=== PATIENT | male | born 1960 | race Two or more races ===

== ENCOUNTER 2019-05-19 17:51 | Inpatient (IN) | payer MEDICAID ==
[~2019-05-19] VITALS: Ht 167.6 cm; Wt 67.4 kg
[2019-05-19] MEDS ORDERED: METF-960 PO (18:01)
[2019-05-19] MEDS ORDERED: SPIR25 PO (18:01)
[2019-05-19] MEDS ORDERED: FURO40I IM (18:01)
[2019-05-19] MEDS ORDERED: FURO40TA5 PO (18:07)
[2019-05-19 19:13] LABS: BASOPHILS % (AUTO) 0.6 % (0.0-2.0); EOSINOPHILS % (AUTO) 4.9 % (1.0-6.0); HEMATOCRIT 38.1 % (41-53); HEMOGLOBIN 12.7 g/dL (13.5-17.5); LYMPHOCYTES % (AUTO) 11.9 % (22.0-44.0); MEAN CORPUSCULAR HEMOGLOBIN 33.4 pg (26.0-34.0); MEAN CORPUSCULAR HGB CONC 33.2 G/dL (31.0-37.0); MEAN CORPUSCULAR VOLUME 101 fL (80-100); MONOCYTES % (AUTO) 11.1 % (2.0-9.0); NEUTROPHILS # (AUTO) 6.3 K/uL (1.8-7.7); NEUTROPHILS % (AUTO) 71.5 % (40.0-70.0); PLATELET COUNT (AUTO) 285 K/uL (150-450); RED BLOOD CELL COUNT(AUTO) 3.79 MIL/uL (4.50-5.90)
[2019-05-19 19:25] LABS: INR 1.1 (0.9-1.1); PROTHROMBIN TIME 11.2 SEC (9.4-11.6)
[2019-05-19 19:26] LABS: CALCIUM, TOTAL 8.6 mg/dL (8.8-10.5); CREATININE 2.63 mg/dL (0.60-1.30); POTASSIUM 5.5 mmol/L (3.5-5.1)
[2019-05-19] MEDS ORDERED: ONDANSETRON HCL 4 MG/2 ML VIAL IM ONE (19:30)
[2019-05-19] MEDS ORDERED: MORPHINE SULFATE 4 MG/ML SYRINGE IM ONE (19:30)
[2019-05-19 19:33] LABS: ALBUMIN 2.1 g/dL (3.4-5.0); BILIRUBIN,TOTAL 0.3 mg/dL (0.1-1.0); TOTAL PROTEIN, SERUM 6.5 g/dL (6.4-8.2)
[2019-05-19] MEDS ORDERED: MORPHINE SULFATE 2 MG/ML SYRINGE IVP ONE (20:00)
[2019-05-19] MEDS ORDERED: ONDANSETRON HCL 4 MG/2 ML VIAL IVP ONE (20:00)
[2019-05-19] MEDS ORDERED: SODIUM POLYSTYRENE SULFONATE 15 GM/60 ML SUSPENSION BOTTLE PO ONE (22:00)
[2019-05-19 22:35] LABS: APPEARANCE,URINE CLEAR (CLEAR); GLUCOSE, URINE (UA) NEGATIVE (NEGATIVE); KETONES,URINE TRACE mg/dL (NEGATIVE); LEUKOCYTE ESTERASE ,URINE NEGATIVE (NEGATIVE); NITRATE,URINE NEGATIVE (NEGATIVE); OCCULT BLOOD,URINE NEGATIVE (NEGATIVE); PROTEIN,URINE NEGATIVE (NEGATIVE)
[2019-05-19 22:36] LABS: BILIRUBIN,URINE PRELIM. POSITIVE (NEGATIVE)
[2019-05-19] MEDS ORDERED: 0.9% SODIUM CHLORIDE 10 ML SYRINGE IVP PRN (22:45)
[2019-05-19] MEDS ORDERED: ACETAMINOPHEN 325 MG TABLET PO PRN (22:45)
[2019-05-19] MEDS ORDERED: ONDANSETRON HCL 4 MG/2 ML VIAL IVP PRN (22:45)
[2019-05-19 22:47] LABS: AMPHET/METH SCREEN,URINE NEGATIVE (NEGATIVE); BARBITURATE SCREEN, URINE NEGATIVE (NEGATIVE); BENZODIAZEPINES SCREEN,URINE NEGATIVE (NEGATIVE); CANNABINOID SCREEN,URINE NEGATIVE (NEGATIVE); COCAINE SCREEN,URINE NEGATIVE (NEGATIVE); METHADONE SCREEN, URINE NEGATIVE (NEGATIVE); OPIATE SCREEN,URINE POSITIVE (NEGATIVE); PHENCYCLIDINE SCREEN,URINE NEGATIVE (NEGATIVE)
[2019-05-19 22:49] LABS: BACTERIA,URINE Rare /HPF (None Seen); RBC,URINE 0-2 /HPF (0-2); WBC,URINE 0-2 /HPF (0-5)
[2019-05-19 22:50] LABS: SQUAMOUS EPITHELIAL CELL,UR Few /LPF (None Seen)
[2019-05-20] VITALS (8 sets, daily range): BP systolic 92–125; BP diastolic 57–73
[2019-05-20] MEDS ORDERED: PNEUMOCOCCAL VACCINE POLYVALENT 0.5 ML VIAL [PPSV23] IM ONE (03:00)
[2019-05-20 05:10] LABS: EOSINOPHILS % (AUTO) 7.8 % (1.0-6.0); HEMATOCRIT 36.3 % (41-53); HEMOGLOBIN 12.2 g/dL (13.5-17.5); LYMPHOCYTES # (AUTO) 0.8 K/uL (1.0-4.8); LYMPHOCYTES % (AUTO) 11.3 % (22.0-44.0); MEAN CORPUSCULAR HEMOGLOBIN 33.4 pg (26.0-34.0); MEAN CORPUSCULAR HGB CONC 33.7 G/dL (31.0-37.0); MEAN CORPUSCULAR VOLUME 99 fL (80-100); MONOCYTES # (AUTO) 0.8 K/uL (0.1-1.0); NEUTROPHILS # (AUTO) 5.1 K/uL (1.8-7.7); NEUTROPHILS % (AUTO) 68.9 % (40.0-70.0); PLATELET COUNT (AUTO) 269 K/uL (150-450); RED BLOOD CELL COUNT(AUTO) 3.66 MIL/uL (4.50-5.90); RED CELL DISTRIBUTION WIDTH 14.1 % (11.5-14.5)
[2019-05-20 05:27] LABS: AMMONIA 23 umol/L (11-32); TROPONIN I < 0.02 ng/mL (0.00-0.05)
[2019-05-20 05:30] LABS: BILIRUBIN,TOTAL 0.2 mg/dL (0.1-1.0); CALCIUM, TOTAL 8.4 mg/dL (8.8-10.5); CREATININE 2.62 mg/dL (0.60-1.30); POTASSIUM 5.6 mmol/L (3.5-5.1); TOTAL PROTEIN, SERUM 5.7 g/dL (6.4-8.2)
[2019-05-20] MEDS ORDERED: MORPHINE SULFATE 2 MG/ML SYRINGE IVP PRN (06:45)
[2019-05-20] MEDS ORDERED: BISACODYL 10 MG RECTAL RECTAL SUPPOSITORY PR PRN (06:45)
[2019-05-20] MEDS ORDERED: ONDANSETRON HCL 4 MG/2 ML VIAL IVP PRN (06:45)
[2019-05-20] MEDS ORDERED: SODIUM CHLORIDE 0.9% 500 ML IV ONE (06:45)
[2019-05-20] MEDS ORDERED: ACETAMINOPHEN 325 MG TABLET PO PRN (06:45)
[2019-05-20] MEDS ORDERED: HYDROCODONE/ACETAMINOPHEN 5-325 MG TABLET PO PRN (06:45)
[2019-05-20] MEDS ORDERED: ZOLPIDEM TARTRATE 5 MG TABLET PO PRN (06:45)
[2019-05-20] MEDS ORDERED: MAGNESIUM HYDROXIDE SUSPENSION 30 ML UDCUP PO PRN (06:45)
[2019-05-20] MEDS ORDERED: SODIUM POLYSTYRENE SULFONATE 15 GM/60 ML SUSPENSION BOTTLE PO ONE (06:45)
[2019-05-20] MEDS: DOCUSATE SODIUM 100 MG CAPSULE PO SCH ×2 (07:43→20:00)
[2019-05-20] MEDS: PANTOPRAZOLE SODIUM 40 MG DR TABLET PO SCH (08:05)
[2019-05-20] MEDS ORDERED: LISI-662 PO (08:14)
[2019-05-20] MEDS ORDERED: ASPI-728 PO (08:14)
[2019-05-20] MEDS: HEPARIN SODIUM,PORCINE 5,000 UNITS/ML VIAL SQ SCH ×3 (08:17→23:11)
[2019-05-20 10:07] LABS: GLUCOMETER DEV NAME(LOC) 5N.2; GLUCOSE,POINT OF CARE 89 MG/DL (70-110)
[2019-05-20 10:07] LABS: GLUCOMETER DEV NAME(LOC) 5N.2; GLUCOSE,POINT OF CARE 82 MG/DL (70-110)
[2019-05-20 17:14] LABS: GLUCOMETER DEV NAME(LOC) 5N.1; GLUCOSE,POINT OF CARE 142 MG/DL (70-110)
[2019-05-20 17:14] LABS: GLUCOMETER DEV NAME(LOC) 5N.1; GLUCOSE,POINT OF CARE 148 MG/DL (70-110)
[2019-05-20] MEDS: ALBUMIN HUMAN 25%-25GM/100ML 100 ML IV SCH ×2 (18:08→23:09)
[2019-05-21] MEDS: ALBUMIN HUMAN 25%-25GM/100ML 100 ML IV SCH ×2 (05:02→12:30)
[2019-05-21 05:06] VITALS: BP 113/61
[2019-05-21 07:38] VITALS: BP 120/65
[2019-05-21] MEDS: PANTOPRAZOLE SODIUM 40 MG DR TABLET PO SCH (08:03)
[2019-05-21] MEDS: DOCUSATE SODIUM 100 MG CAPSULE PO SCH ×2 (08:03→21:00)
[2019-05-21] MEDS: HEPARIN SODIUM,PORCINE 5,000 UNITS/ML VIAL SQ SCH ×3 (08:03→23:26)
[2019-05-21 08:05] LABS: CREATININE 1.75 mg/dL (0.60-1.30); MAGNESIUM 2.1 mg/dL (1.80-2.40); PHOSPHORUS 3.4 mg/dL (2.5-4.9); POTASSIUM 4.3 mmol/L (3.5-5.1)
[2019-05-21 08:27] LABS: APPEARANCE,URINE CLEAR (CLEAR); BILIRUBIN,URINE NEGATIVE (NEGATIVE); GLUCOSE, URINE (UA) NEGATIVE (NEGATIVE); KETONES,URINE NEGATIVE (NEGATIVE); LEUKOCYTE ESTERASE ,URINE NEGATIVE (NEGATIVE); NITRATE,URINE NEGATIVE (NEGATIVE); OCCULT BLOOD,URINE NEGATIVE (NEGATIVE); PROTEIN,URINE NEGATIVE (NEGATIVE); UROBILINOGEN,URINE 0.2 mg/dL (<=1.0)
[2019-05-21 08:29] LABS: CREATININE,URINE RANDOM 111.7 mg/dL (30.0-125.0); SODIUM,URINE RANDOM 45 mmol/l (20-110); UREA NITROGEN,URINE RANDOM 759 mg/dL (350-1000)
[2019-05-21 08:30] LABS: BACTERIA,URINE None Seen /HPF (None Seen); RBC,URINE None Seen /HPF (0-2); WBC,URINE None Seen /HPF (0-5)
[2019-05-21 11:08] VITALS: BP 130/73
[2019-05-21] MEDS ORDERED: SODIUM CHLORIDE 0.9% 250 ML IV ONE (12:24)
[2019-05-21 15:09] VITALS: BP 98/58
[2019-05-21 19:32] VITALS: BP 104/54
[2019-05-22 00:17] VITALS: BP 97/53
[2019-05-22 04:40] VITALS: BP 98/54
[2019-05-22 05:51] LABS: CREATININE 1.53 mg/dL (0.60-1.30); MAGNESIUM 2.2 mg/dL (1.80-2.40); PHOSPHORUS 2.8 mg/dL (2.5-4.9); POTASSIUM 4.1 mmol/L (3.5-5.1)
[2019-05-22 07:07] VITALS: BP 91/49
[2019-05-22 07:16] VITALS: BP 105/58
[2019-05-22] MEDS: HEPARIN SODIUM,PORCINE 5,000 UNITS/ML VIAL SQ SCH (08:58)
[2019-05-22] MEDS: DOCUSATE SODIUM 100 MG CAPSULE PO SCH (08:59)
[2019-05-22] MEDS: PANTOPRAZOLE SODIUM 40 MG DR TABLET PO SCH (08:59)
[2019-05-22] MEDS ORDERED: MULTIVITAMINS WITH MINERALS, THERAPEUTIC TABLET PO SCH (09:00)
[2019-05-22 10:55] VITALS: BP 128/71
== END 2019-05-22 14:10 | disposition home or self-care (01) ==
LOC: EMS 17:58 → 5N 05-20 02:22
PROVIDERS: ADMIT Internal Medicine; ATTEND Internal Medicine
PROC: 0W9G3ZZ Drainage of Peritoneal Cavity, Percutaneous Approach (ICD-10-PCS; principal; 2019-05-20)
DX: K74.60 Unspecified cirrhosis of liver (principal); E43 Unspecified severe protein-calorie malnutrition; N17.9 Acute kidney failure, unspecified; R18.8 Other ascites; E11.22 Type 2 diabetes mellitus with diabetic chronic kidney disease; E87.5 Hyperkalemia; I13.0 Hypertensive heart and chronic kidney disease with heart failure and stage 1 through stage 4 chronic kidney disease, or unspecified chronic kidney disease; I50.9 Heart failure, unspecified; D63.8 Anemia in other chronic diseases classified elsewhere; E78.5 Hyperlipidemia, unspecified; R29.6 Repeated falls; N18.9 Chronic kidney disease, unspecified; N13.30 Unspecified hydronephrosis; M54.9 Dorsalgia, unspecified; X58.XXXA Exposure to other specified factors, initial encounter; R55 Syncope and collapse; Z88.0 Allergy status to penicillin; Z79.82 Long term (current) use of aspirin; Z79.899 Other long term (current) drug therapy; Z68.24 Body mass index [BMI] 24.0-24.9, adult; Z79.84 Long term (current) use of oral hypoglycemic drugs; Z87.891 Personal history of nicotine dependence
CPT/HCPCS: 49083; 70450; 72131; 76770; 76942; 80074; 82570; 83735; 84100; 84132; 84300; 84540; 90732; 93005; 97116; 97162; 97166; 97530; 97535; J1644; J2270; J2405; J7040; J7050; P9046

== ENCOUNTER 2019-06-18 15:33 | Emergency (ER) | payer MEDICAID ==
[~2019-06-18] VITALS: Ht 167.6 cm; Wt 65.0 kg
[~2019-06-18 15:33] MED LIST: ASPI-728 PO
[2019-06-18] MEDS ORDERED: POVIDONE-IODINE 10% 120 ML SOLUTION TP ONE (16:00)
[2019-06-18 18:01] VITALS: BP 132/85
== END 2019-06-18 18:12 | disposition home or self-care (01) ==
LOC: EMS 15:34
DX: R18.8 Other ascites (principal); R10.84 Generalized abdominal pain; I10 Essential (primary) hypertension; F17.210 Nicotine dependence, cigarettes, uncomplicated; Z88.0 Allergy status to penicillin; Z79.82 Long term (current) use of aspirin
CPT/HCPCS: 49082; 49083

== ENCOUNTER 2019-06-24 18:45 | Emergency (ER) | payer MEDICAID ==
[~2019-06-24] VITALS: Ht 175.3 cm; Wt 81.8 kg
[2019-06-24] MEDS ORDERED: FURO40 PO (18:58)
[2019-06-24] MEDS ORDERED: ATOR40TA28 PO (18:58)
[2019-06-24 19:11] LABS: GLUCOSE,POINT OF CARE 133 MG/DL (70-110)
[2019-06-24] MEDS ORDERED: LIDOCAINE 1% 10 ML VIAL INJ ONE (22:00)
[2019-06-24 22:13] LABS: PLATELET COUNT (AUTO) 311 K/uL (150-450); RED BLOOD CELL COUNT(AUTO) 3.95 MIL/uL (4.50-5.90)
[2019-06-24 22:18] LABS: BASOPHILS % (AUTO) 0.5 % (0.0-2.0); EOSINOPHILS % (AUTO) 9.9 % (1.0-6.0); HEMATOCRIT 39.4 % (41-53); HEMOGLOBIN 13.3 g/dL (13.5-17.5); LYMPHOCYTES % (AUTO) 9.1 % (22.0-44.0); MEAN CORPUSCULAR HEMOGLOBIN 33.7 pg (26.0-34.0); MEAN CORPUSCULAR HGB CONC 33.8 G/dL (31.0-37.0); MEAN CORPUSCULAR VOLUME 100 fL (80-100); MONOCYTES # (AUTO) 1.1 K/uL (0.1-1.0); MONOCYTES % (AUTO) 9.9 % (2.0-9.0); NEUTROPHILS # (AUTO) 8.1 K/uL (1.8-7.7); NEUTROPHILS % (AUTO) 70.6 % (40.0-70.0); RED CELL DISTRIBUTION WIDTH 14.2 % (11.5-14.5)
[2019-06-24 22:26] LABS: CALCIUM, TOTAL 8.2 mg/dL (8.8-10.5); CREATININE 1.77 mg/dL (0.60-1.30); POTASSIUM 5.2 mmol/L (3.5-5.1)
[2019-06-24 22:27] LABS: INR 1.2 (0.9-1.1); PROTHROMBIN TIME 12.1 SEC (9.4-11.6)
[2019-06-24 22:32] LABS: ALBUMIN 2.1 g/dL (3.4-5.0); BILIRUBIN,TOTAL 0.3 mg/dL (0.1-1.0); TOTAL PROTEIN, SERUM 6.8 g/dL (6.4-8.2)
[2019-06-25 00:19] LABS: SPECIMENTYPE,BODY FLUID PERITONEAL
[2019-06-25 02:16] LABS: APPEARANCE,SPUN,BODY FLUID CLEAR (CLEAR); APPEARANCE,UNSPUN,BODY FLUID CLEAR (CLEAR)
[2019-06-25 02:17] LABS: BODY FLUID RBC 42.2 /cu. mm.; COLOR,BODY FLUID YELLOW (LT YELLOW); LYMPHOCYTES,BODY FLUID 48 %; MONOCYTES,BODY FLUID 24 %; NEUTROPHILS,BODY FLUID 3 %; TOTAL VOLUME,BODY FLUID 3310 mL; WBC, BODY FLUID 16.66 /cu. mm.
[2019-06-25 02:28] LABS: BASOPHILS,BODY FLUID 0 %; EOSINOPHILS,BF (ANAL) 0 %
[2019-06-25 02:50] VITALS: BP 124/81
== END 2019-06-25 02:50 | disposition home or self-care (01) ==
LOC: EMS 18:46
DX: R18.8 Other ascites (principal); E87.5 Hyperkalemia; I10 Essential (primary) hypertension; Z88.0 Allergy status to penicillin; Z79.82 Long term (current) use of aspirin; Z79.899 Other long term (current) drug therapy
CPT/HCPCS: 36415; 49083; 80053; 82945; 82962; 83690; 84157; 85025; 85610; 85730; 86850; 86900; 86901; 87070; 87205; 89051; 93005; 99285; J3490

== ENCOUNTER 2019-07-12 17:25 | Emergency (ER) | payer MEDICAID ==
[~2019-07-12] VITALS: Ht 170.2 cm; Wt 77.0 kg
[~2019-07-12 17:25] MED LIST changes: +ATOR40TA28 PO; +FURO40 PO
[2019-07-12 17:47] VITALS: BP 107/68
[2019-07-12 18:05] LABS: GLUCOSE,POINT OF CARE 138 MG/DL (70-110)
== END 2019-07-12 19:32 | disposition home or self-care (01) ==
LOC: EMS 17:26
DX: R18.8 Other ascites (principal); I10 Essential (primary) hypertension; Z88.0 Allergy status to penicillin; Z79.899 Other long term (current) drug therapy; Z79.82 Long term (current) use of aspirin

== ENCOUNTER → 2021-09-13 | Day surgery (SDC) | payer MEDICARE, OTHER ==
[~2021-09-13] VITALS: Ht 175.3 cm; Wt 75.4 kg
[~2021-09-13] MED LIST changes: +ASPI-1450 PO; -ASPI-728 PO; +ASPIRIN 81 MG CHEWABLE TABLET PO ONE; +CLOP75TA60 PO; +DIAZEPAM 5 MG TABLET PO ONE; +DiphenhydrAMINE HCL 50 MG CAPSULE PO ONE; +FURO20 PO; -FURO40 PO; +FentaNYL CITRATE PF 100 MCG/2 ML VIAL ONE; +HEPARIN SODIUM 1000 UNITS/NS 0 ML ONE; +HEPARIN SODIUM 1000 UNITS/NS 500 ML ONE; +IOHEXOL 300 MG/ML 100 ML VIAL ONE; +IOHEXOL 300 MG/ML 150 ML VIAL ONE; +IOHEXOL 300 MG/ML 50 ML VIAL ONE; +LIDOCAINE/PF 1% 30 ML VIAL ONE; +LISI-893 PO; +MIDAZOLAM HCL 2 MG/2 ML VIAL ONE; +SIMV-260 PO; +SODI650T33 PO; +SODIUM BICARBONATE 50 MEQ/50 ML VIAL ONE; +SODIUM CHLORIDE 0.9% 1,000 ML IV ONE; +SODIUM CHLORIDE 0.9% 1,000 ML ONE; +SPIR-37 PO; +TICAGRELOR 90 MG TABLET ONE
== END | disposition still patient (30) ==
LOC: CATHLAB 19:19
PROVIDERS: ATTEND Internal Medicine Interventional Cardiology
DX: R94.39 Abnormal result of other cardiovascular function study (principal); Z53.8 Procedure and treatment not carried out for other reasons; E11.22 Type 2 diabetes mellitus with diabetic chronic kidney disease; I12.9 Hypertensive chronic kidney disease with stage 1 through stage 4 chronic kidney disease, or unspecified chronic kidney disease; E78.00 Pure hypercholesterolemia, unspecified; N18.9 Chronic kidney disease, unspecified
CPT/HCPCS: J1644; J2250; J3010; J7030; J3490; Q9967